=== PATIENT | male | born 1960 | race African-American/Black ===

== ENCOUNTER 2019-10-13 12:35 | Day surgery (SDC) | payer BC ==
[2019-10-13 13:36] VITALS: BMI 33.4
[2019-10-13 14:21] VITALS: TEMP 97.2
[2019-10-13 14:58] VITALS: BP 122/70; PULSE 72
--- NOTE | 2019-10-15 16:15 | PATH ---
Surgical Pathology Report Patient Name: MOHIT VILLAFANA [facility]. Rec. #: [id number] /Age/Gender: 1960 (Age: 58) / M Account: [id number] Location: [facility]-ENDOSCOPY Taken: 10/13/2019 Received: 10/14/2019 Reported: 10/15/2019 Physicians: Kaleb Ryder M.D. Specimen(s) Received TRANSVERSE COLON POLYP Clinical History History of colon polyps Postoperative diagnosis: Transverse polyp, hemorrhoids, history of colon polyps Final Diagnosis TRANSVERSE COLON POLYP, POLYPECTOMY: TUBULAR ADENOMA. Electronically Signed Gilles Mccarty M.D. Gross Description Received in formalin, labeled "transverse colon polyp" is a simms, irregular portion of soft tissue measuring 0.3 cm. in greatest dimension. The specimen is submitted in toto in one cassette. /10/14/2019 saudi/10/14/2019
== END 2019-10-13 14:50 | disposition home or self-care (01) ==
LOC: JASU-ENDO 12:35
PROVIDERS: ATTEND Internal Medicine Gastroenterology
PROC: 0DBL8ZX Excision of Transverse Colon, Via Natural or Artificial Opening Endoscopic, Diagnostic (ICD-10-PCS; principal; 2019-10-13 13:30)
DX: Z86.010 Personal history of colon polyps (principal); Z80.0 Family history of malignant neoplasm of digestive organs; D12.3 Benign neoplasm of transverse colon; K64.8 Other hemorrhoids
CPT/HCPCS: 88305-TC